=== PATIENT | male | born 1960 | race Caucasian/White ===

== ENCOUNTER 2016-07-31 15:25 | Emergency (ER) | payer OTHER ==
[~2016-07-31] VITALS: Ht 170.2 cm; Wt 59.5 kg
[~2016-07-31 15:25] MED LIST: ALEVE220 MG PO; KEFLEX500 MG PO
[2016-07-31 17:55] VITALS: BP 118/83
== END 2016-07-31 17:56 | disposition home or self-care (01) ==
LOC: EME 15:25
PROC: 0HQ0XZZ Repair Scalp Skin, External Approach (ICD-10-PCS; principal; 2016-07-31)
DX: S01.01XA Laceration without foreign body of scalp, initial encounter (principal); W18.30XA Fall on same level, unspecified, initial encounter; F10.99 Alcohol use, unspecified with unspecified alcohol-induced disorder; F17.200 Nicotine dependence, unspecified, uncomplicated
CPT/HCPCS: 70450; 99281; 99284

== ENCOUNTER 2016-08-10 08:20 | Emergency (ER) | payer OTHER ==
[~2016-08-10] VITALS: Ht 165.1 cm; Wt 67.2 kg
[2016-08-10 09:48] VITALS: BP 193/113
== END 2016-08-10 09:30 | disposition home or self-care (01) ==
LOC: EME 08:20
DX: S01.91XD Laceration without foreign body of unspecified part of head, subsequent encounter (principal); W18.00XD Striking against unspecified object with subsequent fall, subsequent encounter; Z48.02 Encounter for removal of sutures; I10 Essential (primary) hypertension; R51 Headache; R00.0 Tachycardia, unspecified; F17.200 Nicotine dependence, unspecified, uncomplicated
CPT/HCPCS: 99281; 99283

== ENCOUNTER 2016-10-18 11:05 | Emergency (ER) | payer OTHER ==
[~2016-10-18] VITALS: Ht 165.1 cm; Wt 64.6 kg
[2016-10-18] MEDS ORDERED: ALBUTEROL2.5 MG/3 M IH (13:43)
[2016-10-18] MEDS ORDERED: ULTRAM50 MG PO (13:43)
[2016-10-18 14:22] VITALS: BP 140/82
== END 2016-10-18 14:24 | disposition home or self-care (01) ==
LOC: EME 11:05
DX: S72.112A Displaced fracture of greater trochanter of left femur, initial encounter for closed fracture (principal); W01.0XXA Fall on same level from slipping, tripping and stumbling without subsequent striking against object, initial encounter; Y93.01 Activity, walking, marching and hiking; F17.200 Nicotine dependence, unspecified, uncomplicated
CPT/HCPCS: 73502; 80053; 85027; 85610; 85730; 86900; 86901; 99281; 99284